=== PATIENT | male | born 1985 | race African-American/Black ===

== ENCOUNTER 2018-10-18 19:26 | Emergency (ER) | payer OTHER, SELFPAY ==
[2018-10-18] MEDS ORDERED: Ketorolac Tromethamine 60 MG/2 ML VIAL ONE (19:57)
[2018-10-18] MEDS ORDERED: Acetaminophen 500 MG TAB ONE (19:57)
== END 2018-10-18 20:17 | disposition home or self-care (01) ==
LOC: MADERS 19:26
DX: G43.909 Migraine, unspecified, not intractable, without status migrainosus (principal)
CPT/HCPCS: 96372; J1885

== ENCOUNTER 2019-09-13 18:38 | Emergency (ER) | payer SELFPAY ==
[2019-09-13] MEDS ORDERED: Oseltamivir 75 MG CAP ONE (19:28)
== END 2019-09-13 19:34 | disposition home or self-care (01) ==
LOC: MADERS 18:38
DX: J10.1 Influenza due to other identified influenza virus with other respiratory manifestations (principal); F17.210 Nicotine dependence, cigarettes, uncomplicated; Z71.6 Tobacco abuse counseling
CPT/HCPCS: 87804; 99406

== ENCOUNTER 2021-01-11 16:39 | Emergency (ER) | payer SELFPAY | END 2021-01-11 17:31 | disposition home or self-care (01) | LOC: MADERS 16:39 | DX: R11.2 Nausea with vomiting, unspecified (principal); R19.7 Diarrhea, unspecified; R10.9 Unspecified abdominal pain; F17.210 Nicotine dependence, cigarettes, uncomplicated | CPT/HCPCS: 99283 ==

== ENCOUNTER 2022-04-21 13:30 | Emergency (ER) | payer SELFPAY ==
[2022-04-21] MEDS ORDERED: Lidocaine 1% w/Epinephrine 1:100K 20 ML VIAL ONE (14:32)
[2022-04-21] MEDS ORDERED: Boostrix 0.5 ML (Tdap) VIAL ONE (15:09)
[2022-04-21] MEDS ORDERED: Bacitracin 1 PK ONE (15:09)
== END 2022-04-21 15:15 | disposition home or self-care (01) ==
LOC: MADERS 13:30
DX: S61.511A Laceration without foreign body of right wrist, initial encounter (principal); F17.210 Nicotine dependence, cigarettes, uncomplicated; Z23 Encounter for immunization
CPT/HCPCS: 12001; 90471; 90715

== ENCOUNTER 2022-10-05 14:22 | Emergency (ER) | payer SELFPAY | END 2022-10-05 14:47 | disposition left against medical advice (07) | LOC: MADERS 14:22 | DX: Z53.21 Procedure and treatment not carried out due to patient leaving prior to being seen by health care provider (principal) ==

== ENCOUNTER 2022-10-06 12:15 | Emergency (ER) | payer SELFPAY ==
[2022-10-06] MEDS ORDERED: Lidocaine 1% w/Epinephrine 1:100K 30 ML VIAL ONE (12:37)
[2022-10-06] MEDS ORDERED: Lidocaine 1% (PF) 30 ML VIAL ONE (12:38)
== END 2022-10-06 13:20 | disposition home or self-care (01) ==
LOC: MADERS 12:15
DX: L03.012 Cellulitis of left finger (principal); F17.290 Nicotine dependence, other tobacco product, uncomplicated
CPT/HCPCS: 10060; J2001

== ENCOUNTER 2022-10-24 08:38 | Emergency (ER) | payer SELFPAY | END 2022-10-24 09:13 | disposition home or self-care (01) | LOC: MADERS 08:38 | DX: U07.1 COVID-19 (principal); F17.290 Nicotine dependence, other tobacco product, uncomplicated | CPT/HCPCS: 87804; 99283; U0003; U0005 ==

== ENCOUNTER 2023-12-01 10:44 | Emergency (ER) | payer SELFPAY ==
[2023-12-01] MEDS ORDERED: Ketorolac Tromethamine 10 MG TAB ONE (10:58)
[2023-12-02 23:21] LABS: SARS-CoV-2 N1 Negative; SARS-CoV-2 N2 Negative; SARS-CoV-2 RNAse P1 Positive; SARS-CoV-2 RNAse P2 Positive
== END 2023-12-01 11:24 | disposition home or self-care (01) ==
LOC: MADERS 10:44
DX: B34.9 Viral infection, unspecified (principal); J11.1 Influenza due to unidentified influenza virus with other respiratory manifestations; F17.290 Nicotine dependence, other tobacco product, uncomplicated
CPT/HCPCS: 87635; 87804; 99284

== ENCOUNTER 2024-10-25 11:31 | Emergency (ER) | payer SELFPAY ==
[2024-10-25] MEDS ORDERED: Diphenoxylate HCl/Atropine Tablet ONE (11:57)
[2024-10-25] MEDS ORDERED: Dicyclomine 10 MG CAP ONE (11:57)
[2024-10-25] MEDS ORDERED: Ondansetron ODT 4 MG TAB ONE (11:57)
== END 2024-10-25 12:11 | disposition home or self-care (01) ==
LOC: MADERS 11:31
DX: R11.2 Nausea with vomiting, unspecified (principal); R19.7 Diarrhea, unspecified; R10.84 Generalized abdominal pain; F17.290 Nicotine dependence, other tobacco product, uncomplicated
CPT/HCPCS: 99283; Q0162